=== PATIENT | male | born 1945 | race Caucasian/White ===

== ENCOUNTER 2016-06-17 12:26 | Emergency (ER) | payer OTHER, MEDICAID ==
[~2016-06-17] VITALS: Ht 167.6 cm; Wt 71.4 kg
[~2016-06-17 12:26] MED LIST: CHOL1CAP6 PO; E-ZMIS3 INH; ECHI400C2; FERR140T PO; FISH OIL OMEGA; FURO1TAB93 PO; INDO25CA PO; LOSA25TA31 PO; POTA20IN3 PO; PROT40TA PO; TAMS0.4C67 PO; VENTAER INH; VITA100017 PO; VITA100020; VITA400C70 PO; ZOVI200C24 PO
[2016-06-17 12:30] VITALS: BP 141/73; PULSE 81; RESP 16; TEMP 97.9; O2SAT 98
[2016-06-17 12:40] VITALS: BP 141/73; PULSE 81; RESP 16; O2SAT 98
[2016-06-17] MEDS ORDERED: TETANUS/DIPHTHERIA TOXOID ADULT 0.5 ML VIAL IM ONE (12:45)
--- NOTE | 2016-06-17 12:57 | PD ---
HPI Chief Complaint: Fall Time Seen by Provider: 12:37 Travel History International Travel<30 days: No Contact w/Intl Traveler<30days: No Traveled to known affect area: No History of Present Illness HPI 71-year-old male presents to the emergency department via EMS for evaluation after a trip and fall that occurred just prior to arrival. Patient states that he drank 7 beers this morning. 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 He states he is unable to see out of the right eye due to swelling. Patient states he was able to ambulate after the fall. He complains of right facial pain and swelling and right knee pain. He is unsure of his tetanus immunization is up-to-date. Patient is a poor historian. He denies taking any anticoagulants, but states "I have been blood" . The patient is unsure what medications he is currently on. He does report history of COPD and hypertension. Patient states he drink alcohol "whenever I can". He reports drinking usually 6-7 beers daily. PFSH Past Medical History Cancer: Yes (colon) Cardiovascular Problems: Yes (HTN) COPD: Yes Diabetes: No Diminished Hearing: No Endocrine: No Gout: Yes Genitourinary: No Hiatal Hernia: No Hypertension: Yes Immune Disorder: No Musculoskeletal: No Neurologic: No Reproductive: No Respiratory: Yes (COPD) Immunizations Current: Yes Thyroid Disease: No Tetanus Vaccination: Unknown Influenza Vaccination: Yes Past Surgical History Abdominal Surgery: Yes (COLON RESECTION) Pacemaker: No Other Surgery: Yes (colonoscopy to remove cancer per pt) Social History Alcohol Use: Yes (6 DRINKS DAILY) Tobacco Use: Yes Substance Use: No Allergies-Medications (Allergen,Severity, Reaction): Coded Allergies: Aspirin (Verified Allergy, Mild, 06/17/16) Reported Meds & Prescriptions Reported Meds & Active Scripts Active Active Prescriptions or Reported Medications Unobtainable Review of Systems Except as stated in HPI: all other systems reviewed are Neg Physical Exam Narrative GENERAL: Well-nourished, well-developed elderly male patient, ambulatory. Afebrile. SKIN: Focused skin assessment warm/dry. Small abrasion noted to the right lower eye orbit and right posterior elbow. HEAD: Normocephalic. Patient has a large amount of right-sided facial swelling to the orbit area with ecchymosis noted. EYES: No scleral icterus. No injection or drainage. I am unable to visualize the right by due to swelling. NECK: Supple, trachea midline. No JVD or lymphadenopathy. CARDIOVASCULAR: Regular rate and rhythm without murmurs, gallops, or rubs. Bilateral radial and pedal pulses are 2+. RESPIRATORY: Breath sounds equal bilaterally. No accessory muscle use. Lungs sounds are clear to auscultation. GASTROINTESTINAL: Abdomen soft, non-tender, nondistended. MUSCULOSKELETAL: No cyanosis, or edema. Patient has ecchymosis and tenderness over right anterior knee. He has full flexion and extension. BACK: Nontender without obvious deformity. No CVA tenderness. No midline spinal tenderness. Data Data Last Documented VS Vital Signs Date Time Temp Pulse Resp B/P Pulse Ox O2 Delivery O2 Flow Rate FiO2 06/17/16 14:00 71 18 138/67 98 Room Air 06/17/16 12:30 97.9 Orders Iv Access Insert/Monitor (06/17/16 12:41) Complete Blood Count With Diff (06/17/16 12:41) Basic Metabolic Panel (Bmp) (06/17/16 12:41) Prothrombin Time / Inr (Pt) (06/17/16 12:41) Act Partial Throm Time (Ptt) (06/17/16 12:41) Alcohol (Ethanol) (06/17/16 12:41) Ct Brain W/O Iv Contrast(Rout) (06/17/16 ) Ct Cerv Spine W/O Contrast (06/17/16 ) Ct Facial Bones W/O Iv Cont (06/17/16 ) Knee, Complete (4vws) (06/17/16 ) Tetanus/Diphtheria Tox Adult (Tetanus/Di (06/17/16 12:45) Ice/Cold Pack (06/17/16 12:41) Labs Laboratory Tests Test 06/17/16 13:30 White Blood Count 5.0 TH/MM3 Red Blood Count 4.16 MIL/MM3 Hemoglobin 12.2 GM/DL Hematocrit 36.4 % Mean Corpuscular Volume 87.4 FL Mean Corpuscular Hemoglobin 29.4 PG Mean Corpuscular Hemoglobin 33.6 % Concent Red Cell Distribution Width 14.2 % Platelet Count 69 TH/MM3 Mean Platelet Volume 7.1 FL Neutrophils (%) (Auto) 67.5 % Lymphocytes (%) (Auto) 22.4 % Monocytes (%) (Auto) 6.2 % Eosinophils (%) (Auto) 3.5 % Basophils (%) (Auto) 0.4 % Neutrophils # (Auto) 3.4 TH/MM3 Lymphocytes # (Auto) 1.1 TH/MM3 Monocytes # (Auto) 0.3 TH/MM3 Eosinophils # (Auto) 0.2 TH/MM3 Basophils # (Auto) 0.0 TH/MM3 CBC Comment AUTO DIFF Differential Comment AUTO DIFF CONFIRMED Prothrombin Time 10.5 SEC Prothromb Time International 1.0 RATIO Ratio Activated Partial 27.2 SEC Thromboplast Time Sodium Level 132 MEQ/L Potassium Level 4.7 MEQ/L Chloride Level 101 MEQ/L Carbon Dioxide Level 23.2 MEQ/L Anion Gap 8 MEQ/L Blood Urea Nitrogen 16 MG/DL Creatinine 1.08 MG/DL Estimat Glomerular Filtration 67 ML/MIN Rate Random Glucose 79 MG/DL Calcium Level 7.9 MG/DL Ethyl Alcohol Level 216 MG/DL [facility] Medical Decision Making Medical Screen Exam Complete: Yes Emergency Medical Condition: Yes Medical Record Reviewed: Yes Interpretation(s) x-ray right knee - CONCLUSION: 1. Degenerative arthritic changes. No acute fracture identified. CT brain - CONCLUSION: No bleed or other acute intracranial abnormality. Chronic white matter changes. CT facial bones - CONCLUSION: 1. Large hematoma in the subcutaneous soft tissues. 2. No acute facial fracture is identified. CT cervical spine - CONCLUSION: Intact cervical spine. Degenerative changes at C1/C2 and C5/C6. Emphysema and left-sided scarring of the visualized lung apices as above. Differential Diagnosis Intracranial abnormality versus closed head injury versus facial fracture versus facial contusion versus hematoma versus right knee fracture versus right knee contusion Narrative Course 71-year-old male presents to the emergency department via EMS for evaluation after a trip and fall. Patient did drink 7 beers today and tripped and fell. He has a large amount of swelling over the right upper and lower eye orbit. CT of the brain, facial bones, cervical spine are ordered and pending. X-ray of the right knee is ordered and pending. CBC, BMP, alcohol level, PTT, PTT/INR ordered and pending. Ice pack is applied to face and right knee. CBC shows low platelets at 69 which is appear chronic for patient. BMP shows no acute abnormality. Alcohol level is 216. Coags are unremarkable. CT of the brain shows no bleed or other acute intracranial abnormality. Chronic white matter changes.. CT of the facial bones shows large hematoma in the subcutaneous soft tissues; no acute facial fracture is identified. CT of the cervical spine shows intact cervical spine. Degenerative changes at C1/C2 and C5 /C6. Emphysema and left-sided scarring of the visualized lung apices as above; X-ray of the right knee shows degenerative arthritic changes. No acute fracture identified. Patient is instructed to apply ice to swelling to the right face as well as the right knee. He is to take ibuprofen [id number] as needed for pain. Patient started to follow counter top maker once swelling goes down. He is return for any acute worsening of symptoms. Patient will be allowed to rest in the emergency department until clinically sober. The patient was discharged in stable condition with instructions, including return instructions and follow up instructions. Diagnosis Primary Impression: Contusion of face Qualified Code: S00.83XA - Contusion of face, initial encounter Additional Impressions: Contusion of knee Qualified Code: S80.01XA - Contusion of right knee, initial encounter Alcohol intoxication Qualified Code: F10.120 - Alcohol intoxication, uncomplicated Referrals: Inclinometer Tester Primary Care Physician Patient Instructions: Contusion in Adults (ED), General Instructions Additional Instructions: Apply ice for 15 minutes on, 30 minutes off to right face and right knee. [id number] Tylenol or ibuprofen as needed for pain. Follow-up with her primary care physician. Follow-up with counter top maker once swelling to the face decreases. Return to the emergency department for any acute worsening of symptoms Med/Other Pt SpecificInfo: No Change to Meds Scripts Unable to Obtain Active Prescriptions or Reported Meds Disposition: 01 DISCHARGE HOME Condition: Stable Libby Soriano June 17, 2016 12:57
--- NOTE | 2016-06-17 13:48 | RADRPT ---
EXAM DATE/TIME: 06/17/2016 13:03 [facility] COMPARISON: CHEST EXPIRATION ONLY, June 12, 2014, 15:24. INDICATIONS : Right knee pain; fell today. MEDICAL HISTORY : Previous broken patella. SURGICAL HISTORY : None. ENCOUNTER: Initial ACUITY: 1 day PAIN SCORE: 7/10 LOCATION: Right knee FINDINGS: The examination demonstrates moderate degenerative changes in the patellofemoral joint. The medial an d lateral compartment are intact. The alignment is excellent. CONCLUSION: 1. Degenerative arthritic changes. No acute fracture identified. Mian Mercado MD on June 17, 2016 at 13:45 Board Certified Radiologist. This report was verified electronically.
[2016-06-17 13:56] LABS: AUTOMATED NEUTROPHIL # 3.4 TH/MM3 (1.8-7.7); BASOPHIL % 0.4 % (0.0-2.0); EOSINOPHIL # 0.2 TH/MM3 (0-0.4); EOSINOPHIL % 3.5 % (0.0-4.0); HEMATOCRIT 36.4 % (39.0-51.0); LYMPH % 22.4 % (9.0-44.0); LYMPHOCYTE # 1.1 TH/MM3 (1.0-4.8); MEAN CELL VOLUME 87.4 FL (80.0-100.0); MEAN CORPUSCULAR HEMOGLOBIN 29.4 PG (27.0-34.0); MEAN CORPUSCULAR HGB CONC 33.6 % (32.0-36.0); MONO % 6.2 % (0.0-8.0); NEUT % 67.5 % (16.0-70.0); PLATELET COUNT 69 TH/MM3 (150-450); RED BLOOD COUNT 4.16 MIL/MM3 (4.50-5.90); RED CELL DISTRIBUTION WIDTH 14.2 % (11.6-17.2)
[2016-06-17 13:59] LABS: HEMO FLAGS AUTO DIFF
[2016-06-17 14:00] VITALS: BP 138/67; PULSE 71; RESP 18; O2SAT 98
--- NOTE | 2016-06-17 14:02 | RADRPT ---
EXAM DATE/TIME: 06/17/2016 13:10 [facility] COMPARISON: No previous studies available for comparison. INDICATIONS : Fall, hit face RADIATION DOSE: 51.21 CTDIvol (mGy) MEDICAL HISTORY : Hypertension. Carcinoma, colon. SURGICAL HISTORY : None. ENCOUNTER: Initial ACUITY: 1 day PAIN SCALE: 7/10 LOCATION: Right cranial TECHNIQUE: Multiple contiguous axial images were obtained of the head. Using automated exposure control and adj ustment of the mA and/or kV according to patient size, radiation dose was kept as low as reasonably a chievable to obtain optimal diagnostic quality images. FINDINGS: CEREBRUM: The ventricles are normal for age. No evidence of midline shift, mass lesion, hemorrhage or acute in farction. No extra-axial fluid collections are seen. There is chronic low-attenuation in the periven tricular white matter. POSTERIOR FOSSA: The cerebellum and brainstem are intact. The 4th ventricle is midline. The cerebellopontine angle i s unremarkable. EXTRACRANIAL: The visualized portion of the orbits is intact. Visualized paranasal sinuses and mastoid air cells ar e clear. SKULL: The calvaria is intact. No evidence of skull fracture. CONCLUSION: No bleed or other acute intracranial abnormality. Chronic white matter changes. Sha Banks MD on June 17, 2016 at 13:59 Board Certified Radiologist. This report was verified electronically.
[2016-06-17 14:05] LABS: APTT (PATIENT) 27.2 SEC (24.3-30.1); PROTHROMBIN TIME - PATIENT 10.5 SEC (9.8-11.6)
--- NOTE | 2016-06-17 14:06 | RADRPT ---
EXAM DATE/TIME: 06/17/2016 13:10 [facility] COMPARISON: CT NEEDLE BIOPSY LUNG, LEFT, June 12, 2014, 13:15. INDICATIONS : Fall, hit face RADIATION DOSE: 51.21 CTDIvol (mGy) MEDICAL HISTORY : Hypertension. Carcinoma, colon. SURGICAL HISTORY : None. ENCOUNTER: Initial ACUITY: 1 day PAIN SCORE: 7/10 LOCATION: Right cranial TECHNIQUE: Volumetric scanning of the facial bones was performed. Using automated exposure control and adjustme nt of the mA and/or kV according to patient size, radiation dose was kept as low as reasonably achiev able to obtain optimal diagnostic quality images. FINDINGS: ORBITS: The orbital and infraorbital osseous structures are intact. The retroconal structures have a normal configuration. No radiopaque foreign bodies are seen. NASAL BONE: The nasal bone and maxillary spine are intact ZYGOMATIC ARCHES: Symmetric without evidence of fracture. SINUSES: The maxillary, ethmoid and frontal sinuses are intact. No air-fluid levels seen. NASAL CAVITY: The nasal septum is intact and midline. The lacrimal ducts are intact. SOFT TISSUES: No radiopaque foreign bodies seen. The exam does demonstrate a large hematoma involving nearly the en tire right face. This extends from the superior margin of the right orbit down to the angle of the ma ndible. INTRACRANIAL: No intracranial air seen. CRIBIFORM PLATE: Grossly intact. CONCLUSION: 1. Large hematoma in the subcutaneous soft tissues. 2. No acute facial fracture is identified. Mian Mercado MD on June 17, 2016 at 14:01 Board Certified Radiologist. This report was verified electronically.
[2016-06-17 14:14] LABS: BICARBONATE 23.2 MEQ/L (21.0-32.0); POTASSIUM 4.7 MEQ/L (3.5-5.1)
[2016-06-17 14:27] LABS: SCAN/DIFF AUTO DIFF CONFIRMED
--- NOTE | 2016-06-17 14:27 | RADRPT ---
EXAM DATE/TIME: 06/17/2016 13:10 [facility] COMPARISON: CT PULMONARY ANGIOGRAM, May 30, 2014, 10:53. INDICATIONS : Trauma; fall, facial injuries. RADIATION DOSE: 22.88 CTDIvol (mGy) MEDICAL HISTORY : Carcinoma, colon. Chronic obstructive pulmonary disease. Hypertension. SURGICAL HISTORY : Colon resection. ENCOUNTER: Initial ACUITY: 1 day PAIN SCALE: 5/10 LOCATION: neck TECHNIQUE: Volumetric scanning of the cervical spine was performed. Multiplanar reconstructions in the sagittal, coronal and oblique axial planes were performed. Using automated exposure control and adjustment o f the mA and/or kV according to patient size, radiation dose was kept as low as reasonably achievable to obtain optimal diagnostic quality images. FINDINGS: VERTEBRAE: Normal vertebral body height. ALIGNMENT: No evidence of subluxation. Moderate osteoarthritis seen anteriorly at C1/C2. C2-C3: The bony spinal canal is normal in size. No evidence of disc bulge or herniation. The neural forami na are bilaterally patent. C3-C4: The bony spinal canal is normal in size. No evidence of disc bulge or herniation. The neural forami na are bilaterally patent. C4-C5: The bony spinal canal is normal in size. No evidence of disc bulge or herniation. The neural forami na are bilaterally patent. C5-C6: The disc as mild loss of height. There is a small, broad left paracentral disc osteophyte complex. C6-C7: The bony spinal canal is normal in size. No evidence of disc bulge or herniation. The neural forami na are bilaterally patent. C7-T1: The bony spinal canal is normal in size. No evidence of disc bulge or herniation. The neural forami na are bilaterally patent. An area of scarring is again partly seen in the left lung apex; what is visualized appears less massl michelle than on the CT pulmonary angiogram. I believe the area has been biopsied in the interim. There is emphysema of both upper lobes. CONCLUSION: Intact cervical spine. Degenerative changes at C1/C2 and C5/C6. Emphysema and left-sided scarring of the visualized lung apices as above. Sha Banks MD on June 17, 2016 at 14:21 Board Certified Radiologist. This report was verified electronically.
--- NOTE | 2016-06-17 14:46 | PD ---
Physical Exam Exam Limitations: Poor Historian Narrative General: 71 y/o patient in no apparent distress Skin: trauma noted to right periorbital area with significant hematoma and swelling Eyes: Unable to visualize right eyes secondary to swelling ENT: no septal hematoma NECK: no pain with range of motion in midline Cardiovascular: Regular rate and rhythm Respiratory: Normal respiratory effort noted Abdomen: soft, nontender, nondistended Neuro: awake, alert, sensation and motor grossly intact Data Data Last Documented VS Vital Signs Date Time Temp Pulse Resp B/P Pulse Ox O2 Delivery O2 Flow Rate FiO2 06/17/16 14:00 71 18 138/67 98 Room Air 06/17/16 12:30 97.9 Orders Iv Access Insert/Monitor (06/17/16 12:41) Complete Blood Count With Diff (06/17/16 12:41) Basic Metabolic Panel (Bmp) (06/17/16 12:41) Prothrombin Time / Inr (Pt) (06/17/16 12:41) Act Partial Throm Time (Ptt) (06/17/16 12:41) Alcohol (Ethanol) (06/17/16 12:41) Ct Brain W/O Iv Contrast(Rout) (06/17/16 ) Ct Cerv Spine W/O Contrast (06/17/16 ) Ct Facial Bones W/O Iv Cont (06/17/16 ) Knee, Complete (4vws) (06/17/16 ) Tetanus/Diphtheria Tox Adult (Tetanus/Di (06/17/16 12:45) Ice/Cold Pack (06/17/16 12:41) Labs Laboratory Tests Test 06/17/16 13:30 White Blood Count 5.0 TH/MM3 Red Blood Count 4.16 MIL/MM3 Hemoglobin 12.2 GM/DL Hematocrit 36.4 % Mean Corpuscular Volume 87.4 FL Mean Corpuscular Hemoglobin 29.4 PG Mean Corpuscular Hemoglobin 33.6 % Concent Red Cell Distribution Width 14.2 % Platelet Count 69 TH/MM3 Mean Platelet Volume 7.1 FL Neutrophils (%) (Auto) 67.5 % Lymphocytes (%) (Auto) 22.4 % Monocytes (%) (Auto) 6.2 % Eosinophils (%) (Auto) 3.5 % Basophils (%) (Auto) 0.4 % Neutrophils # (Auto) 3.4 TH/MM3 Lymphocytes # (Auto) 1.1 TH/MM3 Monocytes # (Auto) 0.3 TH/MM3 Eosinophils # (Auto) 0.2 TH/MM3 Basophils # (Auto) 0.0 TH/MM3 CBC Comment AUTO DIFF Differential Comment AUTO DIFF CONFIRMED Prothrombin Time 10.5 SEC Prothromb Time International 1.0 RATIO Ratio Activated Partial 27.2 SEC Thromboplast Time Sodium Level 132 MEQ/L Potassium Level 4.7 MEQ/L Chloride Level 101 MEQ/L Carbon Dioxide Level 23.2 MEQ/L Anion Gap 8 MEQ/L Blood Urea Nitrogen 16 MG/DL Creatinine 1.08 MG/DL Estimat Glomerular Filtration 67 ML/MIN Rate Random Glucose 79 MG/DL Calcium Level 7.9 MG/DL Ethyl Alcohol Level 216 MG/DL [facility] Supervised Visit with SOULEYMANE: Yes Interpretation(s) CBC & BMP Diagram 06/17/16 13:30 Last [address] 06/17/16 0000 Signed Impressions: Service Date/Time: June 13:10 - CONCLUSION: 1. Large hematoma in the subcutaneous soft tissues. 2. No acute facial fracture is identified. Mian Mercado MD Knee X-Ray 06/17/16 0000 Signed Impressions: Service Date/Time: June 13:03 - CONCLUSION: 1. Degenerative arthritic changes. No acute fracture identified. Mian Mercado MD Head CT 06/17/16 0000 Signed Impressions: Service Date/Time: June 13:10 - CONCLUSION: No bleed or other acute intracranial abnormality. Chronic white matter changes. Sha Banks MD Narrative Course I, Dr. bingham, have reviewed the advance practice practitioner's documentation and am in agreement, met with the patient face to face, made the diagnosis, and the medical decision making was done by me. *My assessment and Findings: 71-year-old male presents status post fall. Workup reveals no fracture head bleed. He has significant periorbital hematoma. He'll need to continue ice pack and follow-up with an pet sitter as an outpatient. He was given return instructions and agrees to discharge, advised to limit alcohol use, patient was monitored until clinically sober and denies new complaints Diagnosis Primary Impression: Contusion of face Qualified Code: S00.83XA - Contusion of face, initial encounter Additional Impressions: Alcohol intoxication Qualified Code: F10.120 - Alcohol intoxication, uncomplicated Contusion of knee Qualified Code: S80.01XA - Contusion of right knee, initial encounter Referrals: Irrigation Supervisor call for appointment Primary Care Physician 1 day Patient Instructions: General Instructions, Contusion in Adults (ED) Additional Instruction: Apply ice for 15 minutes on, 30 minutes off to right face and right knee. [id number] Tylenol or ibuprofen as needed for pain. Follow-up with her primary care physician. Follow-up with pet sitter once swelling to the face decreases. Return to the emergency department for any acute worsening of symptoms Med/Other Pt SpecificInfo: No Change to Meds Scripts Unable to Obtain Active Prescriptions or Reported Meds Disposition: 01 DISCHARGE HOME Condition: Stable Perla Bingham MD June 17, 2016 14:46
== END 2016-06-17 16:53 | disposition home or self-care (01) ==
LOC: NEPC 12:26
DX: S00.83XA Contusion of other part of head, initial encounter (principal); S80.00XA Contusion of unspecified knee, initial encounter; F10.129 Alcohol abuse with intoxication, unspecified; J44.9 Chronic obstructive pulmonary disease, unspecified; I10 Essential (primary) hypertension; W10.8XXA Fall (on) (from) other stairs and steps, initial encounter; Y93.E2 Activity, laundry; Y92.008 Other place in unspecified non-institutional (private) residence as the place of occurrence of the external cause; Z23 Encounter for immunization; Z72.0 Tobacco use
CPT/HCPCS: 70450; 70486; 72125; 73564; 80048; 80307; 85025; 85610; 85730; 90471; 90714

== ENCOUNTER 2016-09-09 10:05 | Inpatient (IN) | payer OTHER, MEDICARE ==
[~2016-09-09] VITALS: Ht 162.6 cm; Wt 67.8 kg
[2016-09-09] VITALS (7 sets, daily range): BP systolic 135–178; BP diastolic 69–88; PULSE 74–103; RESP 18–22; TEMP 96.9–98.4; O2SAT 98–99
--- NOTE | 2016-09-09 10:28 | PD ---
HPI Chief Complaint: Pain: Acute or Chronic Time Seen by Provider: 10:28 Travel History International Travel<30 days: No Contact w/Intl Traveler<30days: No Traveled to known affect area: No History of Present Illness HPI 71-year-old male came to the emergency room with history of right ankle and knee pain and swelling. Patient says this has been going on for past 5-7 days. Did fall wants although he is not certain when. Since it was not getting better he decided to come to the emergency room. He denies any fever or chills. He was slightly tachycardic upon arrival. He appears to be in mild distress. He says he had a surgery on his right knee. Years ago when he broke his patella. [facility] Past Medical History Narrative Medical List of his past medical, surgical, social and family history is reviewed from the nursing note. Depression: Yes Cancer: Yes (colon) Cardiovascular Problems: Yes (HTN) COPD: Yes Diabetes: No Diminished Hearing: No Endocrine: No Gout: Yes Genitourinary: No Hiatal Hernia: No Hypertension: Yes Immune Disorder: No Musculoskeletal: No Neurologic: No Reproductive: No Respiratory: Yes (COPD) Immunizations Current: Yes Thyroid Disease: No Tetanus Vaccination: < 5 Years Past Surgical History Abdominal Surgery: Yes (COLON RESECTION) Pacemaker: No Other Surgery: Yes (colonoscopy to remove cancer per pt) Social History Alcohol Use: Yes (6 DRINKS DAILY) Tobacco Use: No Substance Use: No Allergies-Medications (Allergen,Severity, Reaction): Coded Allergies: Aspirin (Verified Allergy, Mild, 09/09/16) Comments List of his allergies reviewed from the nursing note. Reported Meds & Prescriptions Reported Meds & Active Scripts Active Narrative Medication List of his home medications reviewed from the nursing note. Review of Systems Except as stated in HPI: all other systems reviewed are Neg Physical Exam Narrative GENERAL: Awake, alert, elderly, mild distress SKIN: Focused skin assessment warm/dry. Erythema and swelling of the right ankle on the lateral aspect with tenderness. Erythema and swelling of the right knee. Both joints appear to be warm to touch. HEAD: Atraumatic. Normocephalic. EYES: Pupils equal and round. No scleral icterus. No injection or drainage. ENT: No nasal bleeding or discharge. Mucous membranes pink and moist. NECK: Trachea midline. No JVD. CARDIOVASCULAR: Regular rate and rhythm. No murmur appreciated. RESPIRATORY: No accessory muscle use. Clear to auscultation. Breath sounds equal bilaterally. GASTROINTESTINAL: Abdomen soft, non-tender, nondistended. Hepatic and splenic margins not palpable. MUSCULOSKELETAL: No obvious deformities. No clubbing. No cyanosis. No edema. Decreased range of motion at the knee and the ankle joint due to pain. NEUROLOGICAL: Awake and alert. No obvious cranial nerve deficits. Motor grossly within normal limits. Normal speech. PSYCHIATRIC: Appropriate mood and affect; insight and judgment normal. Data Data Last Documented VS Vital Signs Date Time Temp Pulse Resp B/P Pulse Ox O2 Delivery O2 Flow Rate FiO2 09/09/16 12:35 74 18 162/76 99 Room Air 09/09/16 11:16 98.4 Orders Complete Blood Count With Diff (09/09/16 10:32) Comprehensive Metabolic Panel (09/09/16 10:32) Prothrombin Time / Inr (Pt) (09/09/16 10:32) Lactic Acid Sepsis Protocol (09/09/16 10:32) Urinalysis - C+S If Indicated (09/09/16 10:32) Blood Culture (09/09/16 10:32) Blood Glucose (09/09/16 10:32) Ecg Monitoring (09/09/16 10:32) Iv Access Insert/Monitor (09/09/16 10:32) Oximetry (09/09/16 10:32) Oxygen Administration (09/09/16 10:32) C-Reactive Protein (Crp) (09/09/16 10:32) Westergren Sedimentation Rate (09/09/16 10:32) Uric Acid (09/09/16 10:32) Ankle, Complete ([id number]) (09/09/16 ) Knee, Complete (4vws) (09/09/16 ) Urine Culture (09/09/16 11:10) Vancomycin Inj (Vancomycin Inj) (09/09/16 12:15) Admit Order (Ed Use Only) (09/09/16 12:47) Labs Laboratory Tests Test 09/09/16 09/09/16 10:45 11:10 White Blood Count 3.1 TH/MM3 Red Blood Count 3.81 MIL/MM3 Hemoglobin 11.8 GM/DL Hematocrit 33.9 % Mean Corpuscular Volume 89.0 FL Mean Corpuscular Hemoglobin 30.9 PG Mean Corpuscular Hemoglobin 34.7 % Concent Red Cell Distribution Width 13.9 % Platelet Count 53 TH/MM3 Mean Platelet Volume 7.3 FL Neutrophils (%) (Auto) 79.3 % Lymphocytes (%) (Auto) 10.0 % Monocytes (%) (Auto) 9.3 % Eosinophils (%) (Auto) 1.2 % Basophils (%) (Auto) 0.2 % Neutrophils # (Auto) 2.4 TH/MM3 Lymphocytes # (Auto) 0.3 TH/MM3 Monocytes # (Auto) 0.3 TH/MM3 Eosinophils # (Auto) 0.0 TH/MM3 Basophils # (Auto) 0.0 TH/MM3 CBC Comment AUTO DIFF Differential Comment AUTO DIFF CONFIRMED Platelet Estimate LOW Platelet Morphology Comment NORMAL Erythrocyte Sedimentation Rate 65 mm/hr Prothrombin Time 10.4 SEC Prothromb Time International 0.9 RATIO Ratio Sodium Level 136 MEQ/L Potassium Level 4.0 MEQ/L Chloride Level 106 MEQ/L Carbon Dioxide Level 25.3 MEQ/L Anion Gap 5 MEQ/L Blood Urea Nitrogen 15 MG/DL Creatinine 1.18 MG/DL Estimat Glomerular Filtration 61 ML/MIN Rate Random Glucose 110 MG/DL Lactic Acid Level 1.0 mmol/L Uric Acid 7.1 MG/DL Calcium Level 8.9 MG/DL Total Bilirubin 0.6 MG/DL Aspartate Amino Transf 15 U/L (AST/SGOT) Alanine Aminotransferase 12 U/L (ALT/SGPT) Alkaline Phosphatase 67 U/L C-Reactive Protein 7.45 MG/DL Total Protein 7.8 GM/DL Albumin 3.7 GM/DL Urine Color YELLOW Urine Turbidity CLEAR Urine pH 5.5 Urine Specific [place] 1.021 Urine Protein 30 mg/dL Urine Glucose (UA) NEG mg/dL Urine Ketones NEG mg/dL Urine Occult Blood NEG Urine Nitrite NEG Urine Bilirubin NEG Urine Urobilinogen 2.0 MG/DL Urine Leukocyte Esterase SMALL Urine RBC 1 /hpf Urine WBC 3 /hpf Urine Squamous Epithelial 2 /hpf Cells Urine Transitional Epithelial <1 /hpf Cells Urine Hyaline Casts 3 /lpf Microscopic Urinalysis Comment CATH-CULTURE IND MDM Medical Decision Making Medical Screen Exam Complete: Yes Emergency Medical Condition: Yes Medical Record Reviewed: Yes Differential Diagnosis Gout arthritis with effusion, cellulitis, septic arthritis Narrative Course 12:16 PM blood test included CRP and sedimentation rate and the test results are suggestive of elevated CRP and sedimentation rate. Uric acid is within normal limit. X-ray does not show any joint effusion. I decided not to do an arthrocentesis because of that. I have ordered IV vancomycin and at this point I would like to admit this patient. I discussed this with the patient and he understands. The x-ray of the ankle is read as possible nondisplaced fracture. I looked at the x-ray myself and did not quite see where the fracture is supposed to be. Currently I'm not splinting this patient since there is an overlying infection. Awaiting for the admitting physician to call back. Procedures EKG Prior to Arrival: No Diagnosis Primary Impression: Cellulitis Qualified Code: L03.115 - Cellulitis of right lower extremity Additional Impression: Pancytopenia Admitting Information Admitting Physician Requests: Admit Scripts Prednisone (21) 10 mg tab Dose Pack 10 Mg Pack10 Mg PO DIRECTED #1 DSPK Ref 0 Prov:Azucena Pierson MD 09/10/16 Hydrocodone-Acetaminophen ([place])5-325 mg Tab1-2 Tab PO Q6H PRN (PAIN) #15 TAB Ref 0 Prov:Azucena Pierson MD 09/10/16 Waqar Cates MD Sep 09, 2016 10:28
[2016-09-09 11:08] LABS: AUTOMATED NEUTROPHIL # 2.4 TH/MM3 (1.8-7.7); BASOPHIL % 0.2 % (0.0-2.0); EOSINOPHIL % 1.2 % (0.0-4.0); HEMATOCRIT 33.9 % (39.0-51.0); LYMPHOCYTE # 0.3 TH/MM3 (1.0-4.8); MEAN CORPUSCULAR HEMOGLOBIN 30.9 PG (27.0-34.0); MEAN CORPUSCULAR HGB CONC 34.7 % (32.0-36.0); MONO % 9.3 % (0.0-8.0); NEUT % 79.3 % (16.0-70.0); PLATELET COUNT 53 TH/MM3 (150-450); RED BLOOD COUNT 3.81 MIL/MM3 (4.50-5.90); RED CELL DISTRIBUTION WIDTH 13.9 % (11.6-17.2); WHITE BLOOD COUNT 3.1 TH/MM3 (4.0-11.0)
[2016-09-09 11:14] LABS: HEMO FLAGS AUTO DIFF
[2016-09-09 11:19] LABS: INTERNATIONAL NORMALIZED RATIO 0.9 RATIO; PROTHROMBIN TIME - PATIENT 10.4 SEC (9.8-11.6)
[2016-09-09 11:24] LABS: ALT (GPT) 12 U/L (12-78); ANION GAP 5 MEQ/L (5-15); AST (GOT) 15 U/L (15-37); BICARBONATE 25.3 MEQ/L (21.0-32.0); BLOOD UREA NITROGEN 15 MG/DL (7-18); CHLORIDE 106 MEQ/L (98-107); GLOMERULAR FILTRATION RATE 61 ML/MIN (>89); SODIUM (NA) 136 MEQ/L (136-145); URIC ACID 7.1 MG/DL (2.6-7.2)
[2016-09-09 11:26] LABS: ALKALINE PHOSPHATASE 67 U/L (45-117); TOTAL BILIRUBIN ADULT 0.6 MG/DL (0.2-1.0)
--- NOTE | 2016-09-09 11:31 | RADRPT ---
EXAM DATE/TIME: 09/09/2016 10:57 [facility] COMPARISON: No previous studies available for comparison. INDICATIONS : Inflammation of right knee and ankle. MEDICAL HISTORY : Hypertension. Carcinoma, colon. SURGICAL HISTORY : Right knee surgery. ENCOUNTER: Initial ACUITY: 2 days PAIN SCORE: 3/10 LOCATION: Right ankle FINDINGS: 3 views of the right ankle reveal a linear lucency involving the distal fibular metaphysis without an gulation or distraction. Overlying soft tissue swelling. Tibia and visualized portions of the foot ar e unremarkable. CONCLUSION: Suspected nondisplaced distal fibular metaphyseal fracture. Soft tissue swelling. Murtaza Brown Jr., MD on September 09, 2016 at 11:28 Board Certified Radiologist. This report was verified electronically.
[2016-09-09 11:32] LABS: BLOOD, URINE NEG (NEG); GLUCOSE,URINE NEG (NEG); HYALINE CAST, URINE 3 /lpf (RARE); KETONE, URINE NEG (NEG); NITRITE,URINE NEG (NEG); PH, URINE 5.5 (5.0-8.5); SQUAMOUS EPITHELIAL CELL URINE 2 /hpf (0-5); TRANSITIONAL EPI CELLS, URINE <1 /hpf; URINE COLOR YELLOW (YELLW/STRAW)
[2016-09-09 11:33] LABS: COMMENT (UR) CATH-CULTURE IND; CULTURE IF INDICATED CATH CULTURE IND
--- NOTE | 2016-09-09 11:33 | RADRPT ---
EXAM DATE/TIME: 09/09/2016 11:00 [facility] COMPARISON: KNEE RIGHT COMPLETE (4VWS), June 17, 2016, 13:03. INDICATIONS : Inflammation of right knee and ankle. MEDICAL HISTORY : Hypertension. Carcinoma, colon. SURGICAL HISTORY : Right knee surgery. ENCOUNTER: Initial ACUITY: 2 days PAIN SCORE: 3/10 LOCATION: Right knee FINDINGS: Four view examination of the right knee demonstrates no evidence of fracture or dislocation. Bony mi neralization is normal. The articular surfaces are intact. No joint effusion. Soft tissue swelling i nvolving the prepatellar and suprapatellar soft tissues. CONCLUSION: Soft tissue swelling. No acute abnormality. Murtaza Brown Jr., MD on September 09, 2016 at 11:29 Board Certified Radiologist. This report was verified electronically.
[2016-09-09 11:49] LABS: PLATELET ESTIMATE SMEAR LOW (NORMAL); PLATELET MORPHOLOGY NORMAL (NORMAL); SCAN/DIFF AUTO DIFF CONFIRMED
[2016-09-09] MEDS ORDERED: VANCOMYCIN INJ 1,000 MG in SODIUM CHLOR 0.9% 250 ML INJ 250 ML IV ONE (12:15)
[2016-09-09] MEDS ORDERED: LACTULOSE SYRUP 20 GM/30 ML CUP PO PRN (14:15)
[2016-09-09] MEDS ORDERED: SODIUM CHLORIDE 0.9% FLUSH 10 ML FLUSH IV FLUSH PRN (14:15)
[2016-09-09] MEDS ORDERED: MAGNESIUM HYDROXIDE SUSP 30 ML CUP PO PRN (14:15)
[2016-09-09] MEDS ORDERED: BISACODYL 10 MG SUPP RECTAL PRN (14:15)
[2016-09-09] MEDS ORDERED: ONDANSETRON HCL 4 MG/2 ML VIAL IVP PRN (14:15)
[2016-09-09] MEDS ORDERED: SENNOSIDES 8.6 MG TAB PO PRN (14:15)
[2016-09-09] MEDS ORDERED: ACETAMINOPHEN 325 MG TAB PO PRN (14:15)
[2016-09-09] MEDS ORDERED: ENOXAPARIN SODIUM 40 MG/0.4 ML SYRINGE SQ SCH (16:00)
[2016-09-09] MEDS: DOCUSATE SODIUM 50 MG/SENNA 8.6 MG TAB PO SCH (21:00)
[2016-09-09] MEDS: SODIUM CHLORIDE 0.9% FLUSH 10 ML FLUSH IV FLUSH SCH (21:02)
[2016-09-09] MEDS ORDERED: oxyCODONE/ACETAMINOPHEN 5 MG/325 MG TAB PO PRN (21:30)
--- NOTE | 2016-09-09 21:33 | HHI.HP ---
HPI Service [facility] Primary Care Physician Viet Fischer MD Admission Diagnosis cellulitis Diagnoses: Chief Complaint: right lower extremity swelling, pain and erythema Travel History International Travel<30 Days: No Contact w/Intl Traveler <30 Da: No Traveled to Known Affected Are: No History of Present Illness This is a 71-year-old male with past medical history of COPD, gout and hypertension who presented to [facility] complaining of 5 days of swelling erythema and tenderness of the right lower extremity. The patient states he noted a swelling and erythema at the level of the knee and the right ankle which progressively got worst. Denies fevers or chills, denies diarrhea, denies dysuria, diarrhea. The patient is a very poor historian and his recollection of events is very limited. Review of Systems As per history of present illness, other systems reviewed by me and negative Past Family Social History Past Medical History 1. COPD. 2. Hypertension. 3. Gout. 4. Colon cancer. Past Surgical History Right knee surgery. Partial colectomy. Reported Medications Reported Meds & Active Scripts Active Active Prescriptions or Reported Medications Unobtainable Allergies: Coded Allergies: Aspirin (Verified Allergy, Mild, 09/09/16) Active Ordered Medications Current Medications Medications (Trade) Dose Ordered Sig/Lisa Route Start Time Stop Time Status Last Admin (NS Flush) 2 ml UNSCH PRN IV FLUSH 09/09/16 14:15 (NS Flush) 2 ml BID IV FLUSH 09/09/16 21:00 09/09/16 21:02 (Tylenol) 650 mg Q4H PRN PO 09/09/16 14:15 (Zofran Inj) 4 mg Q6H PRN IVP 09/09/16 14:15 (Lovenox Inj) 40 mg Q24H SQ 09/09/16 16:00 (Cherry-Colace) 1 tab BID PO 09/09/16 21:00 (Milk Of Magnesia Liq) 30 ml Q12H PRN PO 09/09/16 14:15 (Senokot) 17.2 mg Q12H PRN PO 09/09/16 14:15 (Dulcolax Supp) 10 mg DAILY PRN RECTAL 09/09/16 14:15 (Lactulose Liq) 30 ml DAILY PRN PO 09/09/16 14:15 Family History Patient states that he has family history of heart disease. Social History The patient is a former smoker, quit 3 years ago. The patient drinks alcohol daily, states he drinks a couple beers every day. Last drink 17 days ago. Denies illicit drug use per The patient is but is . Physical Exam Vital Signs Vital Signs Date Time Temp Pulse Resp B/P Pulse Ox O2 Delivery O2 Flow Rate FiO2 09/09/16 20:00 96.9 89 22 160/72 99 09/09/16 16:55 84 20 178/88 98 09/09/16 12:35 74 18 162/76 99 Room Air 09/09/16 11:16 98.4 88 19 135/69 98 Room Air 09/09/16 11:16 98 Room Air 09/09/16 10:29 98.4 91 19 135/69 98 Room Air 09/09/16 10:19 20 09/09/16 10:07 98.0 103 20 156/71 99 Room Air Physical Exam GENERAL: This is a well-nourished, well-developed patient, in no apparent distress. SKIN: No rashes, ecchymoses or lesions. Cool and dry. HEAD: Atraumatic. Normocephalic. No temporal or scalp tenderness. EYES: Pupils equal round and reactive. Extraocular motions intact. No scleral icterus. No injection or drainage. ENT: Nose without bleeding, purulent drainage or septal hematoma. Throat without erythema, tonsillar hypertrophy or exudate. Uvula midline. Airway patent. NECK: Trachea midline. No JVD or lymphadenopathy. Supple, nontender, no meningeal signs. CARDIOVASCULAR: Regular rate and rhythm without murmurs, gallops, or rubs. RESPIRATORY: Clear to auscultation. Breath sounds equal bilaterally. No wheezes , rales, or rhonchi. GASTROINTESTINAL: Abdomen soft, non-tender, nondistended. No hepato-splenomegaly , or palpable masses. No guarding. MUSCULOSKELETAL: Right lower extremity has swelling and erythema on the anterior right knee, there is no fluid collection. The right ankle is swollen, warm and tender to palpation. NEUROLOGICAL: Awake and alert. Cranial nerves II through XII intact. Motor and sensory grossly within normal limits. Five out of 5 muscle strength in all muscle groups. Normal speech. Laboratory Laboratory Tests Test 09/09/16 09/09/16 10:45 11:10 White Blood Count 3.1 Red Blood Count 3.81 Hemoglobin 11.8 Hematocrit 33.9 Mean Corpuscular Volume 89.0 Mean Corpuscular Hemoglobin 30.9 Mean Corpuscular Hemoglobin 34.7 Concent Red Cell Distribution Width 13.9 Platelet Count 53 Mean Platelet Volume 7.3 Neutrophils (%) (Auto) 79.3 Lymphocytes (%) (Auto) 10.0 Monocytes (%) (Auto) 9.3 Eosinophils (%) (Auto) 1.2 Basophils (%) (Auto) 0.2 Neutrophils # (Auto) 2.4 Lymphocytes # (Auto) 0.3 Monocytes # (Auto) 0.3 Eosinophils # (Auto) 0.0 Basophils # (Auto) 0.0 CBC Comment AUTO DIFF Differential Comment AUTO DIFF CONFIRMED Platelet Estimate LOW Platelet Morphology Comment NORMAL Erythrocyte Sedimentation Rate 65 Prothrombin Time 10.4 Prothromb Time International 0.9 Ratio Sodium Level 136 Potassium Level 4.0 Chloride Level 106 Carbon Dioxide Level 25.3 Anion Gap 5 Blood Urea Nitrogen 15 Creatinine 1.18 Estimat Glomerular Filtration 61 Rate Random Glucose 110 Lactic Acid Level 1.0 Uric Acid 7.1 Calcium Level 8.9 Total Bilirubin 0.6 Aspartate Amino Transf 15 (AST/SGOT) Alanine Aminotransferase 12 (ALT/SGPT) Alkaline Phosphatase 67 C-Reactive Protein 7.45 Total Protein 7.8 Albumin 3.7 Urine Color YELLOW Urine Turbidity CLEAR Urine pH 5.5 Urine Specific [place] 1.021 Urine Protein 30 Urine Glucose (UA) NEG Urine Ketones NEG Urine Occult Blood NEG Urine Nitrite NEG Urine Bilirubin NEG Urine Urobilinogen 2.0 Urine Leukocyte Esterase SMALL Urine RBC 1 Urine WBC 3 Urine Squamous Epithelial 2 Cells Urine Transitional Epithelial <1 Cells Urine Hyaline Casts 3 Microscopic Urinalysis Comment CATH-CULTURE IND Date/Time Procedure Status Source Growth 09/09/16 11:10 Urine Culture Received Urine Catheterized Urine Pending 09/09/16 10:45 Aerobic Blood Culture Received Blood Peripheral Pending 09/09/16 10:45 Anaerobic Blood Culture Received Blood Peripheral Pending Result Diagram: 09/09/16 1045 09/09/16 1045 Imaging Last Impressions Knee X-Ray 09/09/16 0000 Signed Impressions: Service Date/Time: August 11:00 - CONCLUSION: Soft tissue swelling. No acute abnormality. Murtaza Brown Jr., MD Ankle X-Ray 09/09/16 0000 Signed Impressions: Service Date/Time: August 10:57 - CONCLUSION: Suspected nondisplaced distal fibular metaphyseal fracture. Soft tissue swelling. Murtaza Brown Jr., MD Reviewed by me Septic Shock Reassessment Heart: Regular rate and rhythm Lungs: Clear Skin: Warm Peripheral Pulses: Bounding Right Radial Bounding Left Radial Assessment and Plan Problem List: (1) Cellulitis ICD Code: L03.90 Status: Acute Plan: Admit the patient to the medical floor. Cellulitis of the right knee. Patient received IV vancomycin in emergency department I will start the patient IV cefazolin Consult physical therapy Follow-up blood cultures obtained in emergency department. (2) Leukopenia ICD Code: D72.819 Status: Acute Plan: Patient history of leukopenia upon review of medical records. Continue to monitor WBC. (3) Right fibular fracture ICD Code: S82.401A Status: Acute Plan: Consult orthopedic surgery. Pain control with oral percocet Assessment and Plan DVT prophylaxis, Lovenox subcutaneous. Discussed Condition With ED physician, patient Physician Certification 2 Midnight Certification Type: Admission for Inpatient Services Order for Inpatient Services The services are ordered in accordance with Medicare regulations or non- Medicare payer requirements, as applicable. In the case of services not specified as inpatient-only, they are appropriately provided as inpatient services in accordance with the 2-midnight benchmark. Estimated LOS (days): 2 days is the estimated time the patient will need to remain in the hospital, assuming treatment plan goals are met and no additional complications. Post-Hospital Plan: Not yet determined Problem Qualifiers (1) Cellulitis: Qualified Code: L03.115 - Cellulitis of right lower extremity (2) Leukopenia: Qualified Code: D72.819 - Leukopenia, unspecified type Amando Parkinson MD Sep 09, 2016 21:33
[2016-09-10] VITALS: BP 150/72; PULSE 90; RESP 22; TEMP 98.1; O2SAT 97
[2016-09-10 04:00] VITALS: BP 138/63; PULSE 80; RESP 20; TEMP 98.1; O2SAT 97
[2016-09-10] MEDS: oxyCODONE/ACETAMINOPHEN 5 MG/325 MG TAB PO PRN ×2 (04:24→08:22)
[2016-09-10 05:33] LABS: HEMATOCRIT 30.9 % (39.0-51.0); MEAN CELL VOLUME 88.3 FL (80.0-100.0); MEAN CORPUSCULAR HGB CONC 35.1 % (32.0-36.0); PLATELET COUNT 56 TH/MM3 (150-450); RED CELL DISTRIBUTION WIDTH 13.8 % (11.6-17.2); WHITE BLOOD COUNT 1.9 TH/MM3 (4.0-11.0)
[2016-09-10 05:44] LABS: HEMO FLAGS AUTO DIFF
[2016-09-10 05:54] LABS: ALT (GPT) 10 U/L (12-78); ANION GAP 6 MEQ/L (5-15); AST (GOT) 11 U/L (15-37); BLOOD UREA NITROGEN 12 MG/DL (7-18); CHLORIDE 107 MEQ/L (98-107); GLOMERULAR FILTRATION RATE 81 ML/MIN (>89); POTASSIUM 3.7 MEQ/L (3.5-5.1); SODIUM (NA) 139 MEQ/L (136-145)
[2016-09-10 05:56] LABS: ALKALINE PHOSPHATASE 57 U/L (45-117); TOTAL BILIRUBIN ADULT 0.5 MG/DL (0.2-1.0)
--- NOTE | 2016-09-10 07:16 | PD.ORT.PN ---
Subjective Subjective Remarks Patient has a history of gout. He has also had multiple falls at home due to gait instability. Complains about swelling of right knee and right ankle 5 days. Pain is improved and swelling has decreased since being admitted. Objective Vitals Vital Signs Date Time Temp Pulse Resp B/P Pulse Ox O2 Delivery O2 Flow Rate FiO2 09/10/16 04:00 98.1 80 20 138/63 97 09/10/16 00:00 98.1 90 22 150/72 97 09/09/16 20:00 96.9 89 22 160/72 99 09/09/16 19:59 78 09/09/16 16:55 84 20 178/88 98 09/09/16 12:35 74 18 162/76 99 Room Air 09/09/16 11:16 98.4 88 19 135/69 98 Room Air 09/09/16 11:16 98 Room Air 09/09/16 10:29 98.4 91 19 135/69 98 Room Air 09/09/16 10:19 20 09/09/16 10:07 98.0 103 20 156/71 99 Room Air I/O 09/09/16 09/09/16 09/09/16 09/10/16 09/10/16 09/10/16 07:00 15:00 23:00 07:00 15:00 23:00 Intake Total 250 ml 240 ml 440 ml Output Total 800 ml Balance 250 ml 240 ml -360 ml Intake Oral 240 ml 240 ml IV Total 250 ml 200 ml Output Urine Total 800 ml # Voids 3 # Bowel Movements 0 0 Result Diagram: 09/10/16 0413 09/10/16 0413 Other Results Laboratory Tests Test 09/09/16 10:45 Prothrombin Time 10.4 SEC (9.8-11.6) Prothromb Time International 0.9 RATIO Ratio Imaging Last 72 hours Impressions Knee X-Ray 09/09/16 0000 Signed Impressions: Service Date/Time: August 11:00 - CONCLUSION: Soft tissue swelling. No acute abnormality. Murtaza Brown Jr., MD Ankle X-Ray 09/09/16 0000 Signed Impressions: Service Date/Time: August 10:57 - CONCLUSION: Suspected nondisplaced distal fibular metaphyseal fracture. Soft tissue swelling. Murtaza Brown Jr., MD Objective Remarks Bilateral upper extremities: Full range of motion neurovascularly intact Left lower extremity: Full range of motion neurovascularly intact Right lower extremity: No pain with hip range of motion. Mild tenderness to palpation of knee with swelling of +1. Previous surgical incision completely healed no erythema or drainage. Examination ankle reveals mild tenderness to palpation over the distal fibula and lateral portion of the foot. Intact sensation in all toes. Swelling of +1 Assessment & Plan Assessment and Plan Gouty arthritis versus right ankle sprain Nonsurgical intervention at this time. Continue to treat as gout. Weightbearing as tolerated right lower extremity. If pain continues in 2-3 weeks re-x-ray may be necessary. Otherwise no further orthopedic care needed Checo Ortiz Jr. Sep 10, 2016 07:16
[2016-09-10 07:51] LABS: NEUTROPHIL # MANUAL DIFF 1.3 TH/MM3 (1.8-7.7); PLATELET ESTIMATE SMEAR LOW (NORMAL); PLATELET MORPHOLOGY NORMAL (NORMAL); POLYS (SEG NEUTROPHILS) 71 % (16-70); SCAN/DIFF FINAL DIFF MANUAL; WBC DIFF SAMPLE 100
[2016-09-10 08:00] VITALS: BP 152/72; PULSE 84; RESP 17; TEMP 96.5; O2SAT 94
[2016-09-10] MEDS: DOCUSATE SODIUM 50 MG/SENNA 8.6 MG TAB PO SCH (08:22)
[2016-09-10] MEDS: SODIUM CHLORIDE 0.9% FLUSH 10 ML FLUSH IV FLUSH SCH (08:22)
[2016-09-10] MEDS ORDERED: PRED10PA PO (09:45)
[2016-09-10] MEDS ORDERED: NORC5TAB PO (09:45)
--- NOTE | 2016-09-10 09:47 | HHI.DCPOC ---
Discharge Care Plan Diagnosis: (1) Pancytopenia (2) Gouty arthritis (3) Ankle sprain Goals to Promote Your Health * To prevent worsening of your condition and complications * To maintain your health at the optimal level Directions to Meet Your Goals Take your medications as prescribed Follow your dietary instruction Follow activity as directed Keep your appointments as scheduled Take your immunizations and boosters as scheduled If your symptoms worsen call your PCP, if no PCP go to Urgent Care Center or Emergency Room Smoking is Dangerous to Your Health. Avoid second hand smoke Call the 24-hour hour crisis hotline for domestic abuse at Azucena Pierson MD Sep 10, 2016 09:47
--- NOTE | 2016-09-10 09:48 | HHI.DS ---
Discharge Summary Admission Date Sep 09, 2016 at 12:49 Discharge Date: Sep 10, 2016 Admitting Diagnosis cellulitis (1) Gouty arthritis ICD Code: M10.9 Diagnosis: Principal (2) Pancytopenia ICD Code: D61.818 Diagnosis: Secondary (3) Ankle sprain ICD Code: S93.409A Diagnosis: Principal Procedures None Brief History - From Admission This is a 71-year-old male with past medical history of COPD, gout and hypertension who presented to [facility] complaining of 5 days of swelling erythema and tenderness of the right lower extremity. The patient states he noted a swelling and erythema at the level of the knee and the right ankle which progressively got worst. Denies fevers or chills, denies diarrhea, denies dysuria, diarrhea. The patient is a very poor historian and his recollection of events is very limited. CBC/BMP: 09/10/16 0413 09/10/16 0413 Significant Findings Laboratory Tests Test 09/09/16 09/09/16 09/10/16 10:45 11:10 04:13 White Blood Count 3.1 TH/MM3 1.9 TH/MM3 (4.0-11.0) (4.0-11.0) Red Blood Count 3.81 MIL/MM3 3.50 MIL/MM3 (4.50-5.90) (4.50-5.90) Hemoglobin 11.8 GM/DL 10.9 GM/DL (13.0-17.0) (13.0-17.0) Hematocrit 33.9 % 30.9 % (39.0-51.0) (39.0-51.0) Platelet Count 53 TH/MM3 56 TH/MM3 (150-450) (150-450) Neutrophils (%) (Auto) 79.3 % (16.0-70.0) Monocytes (%) (Auto) 9.3 % (0.0-8.0) Lymphocytes # (Auto) 0.3 TH/MM3 (1.0-4.8) Platelet Estimate LOW (NORMAL) LOW (NORMAL) Erythrocyte Sedimentation Rate 65 mm/hr (0-20) Estimat Glomerular Filtration 61 ML/MIN (>89) 81 ML/MIN (>89) Rate Random Glucose 110 MG/DL (74-106) C-Reactive Protein 7.45 MG/DL (0.00-0.30) Urine Protein 30 mg/dL (NEG-TRACE) Urine Leukocyte Esterase SMALL (NEG) Neutrophils % (Manual) 71 % (16-70) Neutrophils # (Manual) 1.3 TH/MM3 (1.8-7.7) Aspartate Amino Transf 11 U/L (15-37) (AST/SGOT) Alanine Aminotransferase 10 U/L (12-78) (ALT/SGPT) Albumin 3.2 GM/DL (3.4-5.0) Imaging Last Impressions Knee X-Ray 09/09/16 0000 Signed Impressions: Service Date/Time: August 11:00 - CONCLUSION: Soft tissue swelling. No acute abnormality. Murtaza Brown Jr., MD Ankle X-Ray 09/09/16 0000 Signed Impressions: Service Date/Time: August 10:57 - CONCLUSION: Suspected nondisplaced distal fibular metaphyseal fracture. Soft tissue swelling. Murtaza Brown Jr., MD PE at Discharge GENERAL: in NAD CARDIOVASCULAR: Regular rate and rhythm without murmurs, gallops, or rubs. RESPIRATORY: Breath sounds equal bilaterally. No accessory muscle use. GASTROINTESTINAL: Abdomen soft, non-tender, nondistended. MUSCULOSKELETAL: Right knee with mild swelling and no erythema. Full range of motion. Right ankle with ecchymosis and bruising on the lateral aspect of the ankle. Full range of motion. BACK: Nontender without obvious deformity. No CVA tenderness. Pt update on day of discharge Follow-up for right knee and right ankle pain. Patient said this occurred after fall. He stated that he thought this was just a gout flareup. Patient stated that he is doing well. He has no complaints. Patient stated that he does drink occasionally. He did change his story a few times during interview. First he stated that he drinks once in a while. Then he stated that he drinks about 3 beers a day but the can stop without any difficulty. Hospital Course Patient had a relatively short hospital course he was admitted secondary to right knee pain and right ankle pain suspecting cellulitis. X-rays were done and reviewed and show some swelling. Orthopedics consulted and stated this was due to gouty arthritis and right ankle sprain. He was treated empirically with 1 dose of vancomycin and then cefazolin. That was discontinued since there were no signs of cellulitis. Patient also noted to have pancytopenia which she had for many years secondary to liver cirrhosis. She used to drink. Extensive education given to patient in regards to alcoholism. He was told that he should avoid alcohol completely including beer due to his worsening liver disease and pancytopenia. Patient stated that he understood. As for the gouty arthritis his uric acid was normal. He was given a dose of Solu-Medrol and then sent home with prednisone Dosepak. Patient also was given pain medication. Extensive education on diagnosis was given. Per orthopedic weightbearing as tolerated and continues to have pain in 2- 3 weeks will need to repeat x-ray. Patient stated he understood. Pt Condition on Discharge: Good Discharge Disposition: Discharge Home Discharge Time: <= 30 minutes Discharge Instructions DIET: Follow Instructions for: As Tolerated, No Restrictions Activities you can perform: Regular-No Restrictions Other Activity Instructions: Weightbearing as tolerated right lower extremity. If pain continues in 2-3 weeks you will needrepeat xray. Follow up Referrals: PCP Follow-up - 1 Week New Medications: Hydrocodone-Acetaminophen ([place]) 5-325 mg Tab 1-2 TAB PO Q6H PRN PAIN #15 Ref 0 TAB Prednisone (21) 10 mg tab Dose Pack (Prednisone (21) 10 mg tab Dose Pack) 10 Mg Pack 10 MG PO DIRECTED Inflammation #1 Ref 0 DSPK Azucena Pierson MD Sep 10, 2016 09:48
[2016-09-10] MEDS ORDERED: methylPREDNISolone SOD SUCC 125 MG/2 ML VIAL IV PUSH ONE (10:00)
--- NOTE | 2016-09-10 11:45 | MB ---
cc: MAGGIE HEATH,ENMANUEL DATE OF CONSULTATION 09/10/2016 REASON FOR CONSULTATION Right ankle pain CONSULTING PHYSICIAN Dr. Enmanuel Rose HISTORY Mr. Lorwy is a 71-year-old male who has multiple medical problems including hypertension, gout, and COPD. He presented to the emergency room with a five-day history of right ankle pain and swelling. He initially had some swelling around the knee. Currently his pain is around the lateral ankle. He does have poor balance and has had several falls. He states that his pain has been occurring for five-seven days. He is currently awake and alert on the seventh floor. Pain is worse with movement. PAST MEDICAL HISTORY Illnesses: 1. COPD 2. Hypertension 3. Gout 4. Colon cancer Surgery history: 1. Right knee surgery 2. Partial colectomy ALLERGIES ASPIRIN MEDICATIONS Please see EMR for a complete list of inpatient medications. This was reviewed. FAMILY HISTORY Positive for coronary artery disease. SOCIAL HISTORY The patient quit smoking three years ago. He drinks a few beers a day. He denies drug use. REVIEW OF SYSTEMS The patient denies headache, visual changes, neck pain, chest pain, shortness of breath, abdominal pain, nausea or recent weight loss. He complains of right ankle pain. PHYSICAL EXAMINATION The patient is a pleasant 71-year male who is awake and alert. He appears well-developed and well-nourished. He is in no acute distress. VITAL SIGNS: Temperature 96.5, pulse 84, respirations 17, blood pressure 152/72, O2 sat 94% on room air. HEAD: The patient is normocephalic. EYES: Pupils are equal. NECK: Soft and nontender. EYES, EARS, NOSE AND THROAT: Trachea is midline. ABDOMEN: Soft, nontender, nondistended. EXTREMITIES: Examination of the bilateral upper extremities reveals no pain with shoulder, elbow or wrist motion. He has intact sensation in all fingers. He has good cap refill in all fingers. Education Specialist strength is +5. Examination of the left leg reveals no pain with hip, knee or ankle motion. Skin is intact. Dorsalis pedis pulse is palpable. Sensation is intact. Examination of the right leg reveals no pain with hip or knee motion. He has a well-healed incision over the anterior knee. Examination of his ankle reveals mild swelling of the lateral ankle. He does have some tenderness over the anterior tibial-fibular ligament. He has minimal pain with ankle range of motion. He has no tenderness over the deltoid ligament. He does have mild tenderness over the dorsum of the fourth and fifth metatarsals. X-RAYS X-rays of the right foot were reviewed. X-rays of the right ankle reveal no evidence of acute fracture. There is a small radiolucency along the fibula. This does not appeared to be acute fracture. The ankles concentrically reduced with no widening of the medial clear space or syndesmosis. IMPRESSION Right lateral ankle pain which is most likely a sprain. A nondisplaced fracture cannot be ruled out. PLAN Treatment options were discussed with the patient. At this point, the patient is able to walk and bear weight without significant discomfort. At this point, I would not recommend any further immobilization. He may weight-bear as tolerated. If his pain continues, it would be worth getting repeat x-rays in approximately two weeks. The patient is in agreeable with this plan. All questions were answered. A mid-level provider in my office, nurse practitioner or PA, may see this patient on a follow-up basis and continue to implement the objective of this plan including: Starting or adjusting medications, injections of muscle, tendon, bursa or joints, cast application, orthotic or brace application, physical therapy, further radiographic studies including x-ray, MRI, CT, ultrasounds or bone scan, vascular studies, neurologic studies, or other specialist consultations, and proceeding with surgical management as appropriate. MD JACK Anand/SUNNI /8:55 AM /11:34 AM
[2016-09-10 12:00] VITALS: BP 130/64; PULSE 86; RESP 16; TEMP 96.4; O2SAT 96
== END 2016-09-10 14:11 | disposition home or self-care (01) | DRG 554 ==
LOC: NEPD 10:05 → NEDA 12:49 → N07B 17:01
PROVIDERS: ADMIT Family Medicine; ATTEND Family Medicine
DX: M10.9 Gout, unspecified (principal); D61.818 Other pancytopenia; L03.115 Cellulitis of right lower limb; K74.60 Unspecified cirrhosis of liver; J44.9 Chronic obstructive pulmonary disease, unspecified; I10 Essential (primary) hypertension; F10.20 Alcohol dependence, uncomplicated; R29.6 Repeated falls; Z85.038 Personal history of other malignant neoplasm of large intestine; Z87.891 Personal history of nicotine dependence; S93.401A Sprain of unspecified ligament of right ankle, initial encounter; S82.401A Unspecified fracture of shaft of right fibula, initial encounter for closed fracture; X58.XXXA Exposure to other specified factors, initial encounter; Y92.9 Unspecified place or not applicable
CPT/HCPCS: 73564; 73610; 80053; 81001; 83605; 84550; 85007; 85025; 85027; 85610; 85652; 86140; 87040; 87086; 96365; J0690; J2930; J3370; J7050